=== PATIENT | male | born 1970 | race African-American/Black ===

== ENCOUNTER 2024-03-31 00:22 | Emergency (ER) | payer SELFPAY ==
[~2024-03-31] VITALS: Ht 188 cm; Wt 102.0 kg
[2024-03-31 00:25] VITALS: TEMP 98.6; O2SAT 95
[2024-03-31 00:45] VITALS: BP 121/73; PULSE 120; RESP 16
[2024-03-31] MEDS: HYDROCODONE/ACETAMINOPHEN 5/325MG TABLET PO ONE (00:45)
[2024-03-31] MEDS: LIDOCAINE HCL/PF 1% 10 MG/ML 5ML VIAL INFIL ONE (00:45)
[2024-03-31] MEDS ORDERED: TETANUS, DIPHTHERIA, PERTUSSIS VAC/PF 0.5ML (>10YR OLD) IM ONE ×3 (00:45→05:30)
[2024-03-31] MEDS: BACITRACIN ZINC OINT UDPKT TOP ONE (00:45)
[2024-03-31] MEDS ORDERED: IBUP-2028 MT (03:17)
[2024-03-31] MEDS ORDERED: TOPUD MT (03:17)
[2024-03-31] MEDS: ONDANSETRON 4MG ODT PO NR (04:10)
[2024-03-31] MEDS: ONDANSETRON 4MG ODT PO ONE (04:10)
== END 2024-03-31 07:34 | disposition home or self-care (01) ==
LOC: ER 00:28
DX: S01.01XA Laceration without foreign body of scalp, initial encounter (principal); S50.02XA Contusion of left elbow, initial encounter; R51.9 Headache, unspecified; Y08.89XA Assault by other specified means, initial encounter; Y93.89 Activity, other specified; Y92.89 Other specified places as the place of occurrence of the external cause; Y99.8 Other external cause status
CPT/HCPCS: 73080; 70450; 72125; 90715; 12004; 99284; Q0162; J3490; Z7610 ×4

== ENCOUNTER 2024-04-14 11:53 | Emergency (ER) | payer SELFPAY ==
[~2024-04-14] VITALS: Ht 190.5 cm; Wt 100.0 kg
[~2024-04-14 11:53] MED LIST: IBUP-2028 MT; TOPUD MT
[2024-04-14 11:59] VITALS: BP 140/91; PULSE 74; RESP 18; TEMP 98.7; O2SAT 100
== END 2024-04-14 12:23 | disposition home or self-care (01) ==
LOC: ER 11:53
DX: S01.01XD Laceration without foreign body of scalp, subsequent encounter (principal); X58.XXXD Exposure to other specified factors, subsequent encounter
CPT/HCPCS: 99281